=== PATIENT | female | born 1945 | race Caucasian/White ===

== ENCOUNTER → 2017-01-22 | Outpatient (CLI) | payer OTHER | LOC: FIMAGING 13:34 | PROVIDERS: ATTEND Internal Medicine | DX: Z13.820 Encounter for screening for osteoporosis (principal); M81.0 Age-related osteoporosis without current pathological fracture; E66.3 Overweight; I10 Essential (primary) hypertension; R73.9 Hyperglycemia, unspecified ==

== ENCOUNTER → 2017-03-05 | Outpatient (CLI) | payer OTHER ==
[~2017-03-05] MED LIST: IOPAMIDOL (ISOVUE 370) 100 ML BTL IV ONE
== END ==
LOC: FIMAGING 15:47
PROVIDERS: ATTEND Internal Medicine
DX: I70.1 Atherosclerosis of renal artery (principal); I10 Essential (primary) hypertension; K76.0 Fatty (change of) liver, not elsewhere classified
CPT/HCPCS: 74175; Q9967

== ENCOUNTER → 2017-04-09 | Outpatient (CLI) | payer OTHER | LOC: BMCIMAGING 08:15 | PROVIDERS: ATTEND Internal Medicine | DX: Z12.31 Encounter for screening mammogram for malignant neoplasm of breast (principal) | CPT/HCPCS: G0202 ==

== ENCOUNTER → 2017-04-14 | Outpatient (CLI) | payer OTHER | LOC: BMCIMAGING 10:12 | PROVIDERS: ATTEND Internal Medicine | DX: R92.8 Other abnormal and inconclusive findings on diagnostic imaging of breast (principal) | CPT/HCPCS: G0204 ==

== ENCOUNTER 2017-05-02 07:17 | Observation (INO) | payer OTHER ==
[2017-05-02] MEDS ORDERED: FLUMAZENIL 0.5 MG/5 ML MDV IVP ONE (07:29)
[2017-05-02] MEDS ORDERED: fentaNYL 100 MCG/2 ML INJ ONE (07:29)
[2017-05-02] MEDS ORDERED: NALOXONE HCL 0.4 MG/ML INJ ONE (07:29)
[2017-05-02] MEDS ORDERED: MIDAZOLAM 2 MG/2 ML VIAL ONE (07:29)
[2017-05-02] MEDS ORDERED: NS 1,000 ML IV SCH (07:30)
[2017-05-02] MEDS ORDERED: ONDANSETRON 4 MG/2 ML VIAL ONE (08:22)
[2017-05-02] MEDS ORDERED: ATROPINE SULFATE 1 MG/ML VIAL ONE (09:08)
[2017-05-02] MEDS ORDERED: HEPARIN 10,000 UNIT/10 ML MDV ONE (10:16)
[2017-05-02] MEDS ORDERED: LIDOCAINE 1% 300 MG/30 ML SDV ONE (10:21)
[2017-05-02] MEDS ORDERED: IOPAMIDOL (ISOVUE-300) 100 ML BTL ONE ×3 (10:21→10:37)
[2017-05-02] MEDS ORDERED: NITROGLYCERIN/D5W 50 MG/250 ML BOTTLE IV ONE (11:26)
[2017-05-02] MEDS ORDERED: ASPIRIN 325 MG TAB PO SCH (14:30)
[2017-05-02] MEDS ORDERED: ZOLPIDEM TARTRATE 5 MG TAB PO PRN (16:07)
[2017-05-02] MEDS ORDERED: ONDANSETRON 4 MG/2 ML VIAL IVP PRN (16:07)
--- NOTE | 2017-05-02 16:12 | PDHOSCONS ---
Hospitalist Consult Hospitalist Consult: CC: Small vessel dissection during renal artery stenting HISTORY: I am asked by Dr. Jiménez to see this patient who came in for elective left renal artery stenting with a history of uncontrolled hypertension and left renal artery stenosis. The patient was feeling well prior to the procedure other than some fatigue. During the procedure there was a small branch vessel partial dissection with no obvious significant bleeding. 2 stents were deployed during the procedure and they successfully deployed with overall a good angiographic result in terms of flow. There were no complications at the access site and no other complications. The patient was still fairly hypertensive after the procedure. Dr. Jiménez asks for us to observe the patient overnight regarding potential for bleeding or ischemia to the kidney or ongoing uncontrolled hypertension. The patient has been treated for many years by Dr. Ziegler for blood pressure, is on 3 medications and has tried other medications in the past and has never had satisfactory blood pressure control. She denies any recent symptoms of heart failure, other heart disease, stroke or visual or neurologic disease, and she has no history of heart neural of vascular, vascular, or renal disease outside of her known renal artery stenosis. ROS: A comprehensive 10 system review revealed no other significant findings PAST MEDICAL HISTORY: brain abscess at age 8 fracture with surgery at age 8 CHAYA on cpap HTN uncontrolled w renal art stenosis on L DM2 lumpectomy FAMILY MEDICAL HISTORY: DM CVA in brother SOCIAL HISTORY: just traveled to [place] for a wedding no tobacco and no problem drinking MEDICATIONS: The patients list has been reconciled by our clinical pharmacist in the EMR. I have reviewed the list and ordered appropriate medicines. 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, no focal weakness IV site: looks normal LABORATORY DATA: none so far, have ordered cbc and chem I have reviewed angio images which do show good angiographic result in terms of flow ASSESSMENT: -Small renal artery branch partial dissection during angioplasty/stent today -appears stable now; will observe overnight for stability in terms of any bleeding or signs of ischemia or renal failure -will get baseline labs now for comparison tomorrow -Uncontrolled HTN and L EDA, now w 2 stents to L RA, BP better at moment If all stable in AM could be discharged to home I have reviewed the patient's case in detail with Dr. Jiménez I have reviewed the patient's past medical records as part of this assessment, including clinic records
[2017-05-02 19:34] LABS: % IMMATURE GRANULYOCYTES 0.4 % (0.0-1.1); ABSOLUTE IMMATURE GRANULOCYTES 0.04 10^3/uL (0.00-0.10); ADD DIFF? NO; ADD MORPH? NO; ADD SCAN? NO; ATYPICAL LYMPHOCYTE FLAG 10 (0-99); FRAGMENT RBC FLAG 0 (0-99); HEMATOCRIT 34.6 % (38.0-47.0); HEMOGLOBIN 12.7 g/dL (12.6-16.3); LEFT SHIFT FLG 0 (0-99); LIPEMIA HEMOLYSIS FLAG 90 (0-99); MEAN CELL HEMOGLOBIN 31.9 pg (27.9-34.1); MEAN CELL HEMOGLOBIN CONCENTR. 36.7 g/dL (32.4-36.7); MEAN CELL VOLUME 86.9 fL (81.5-99.8); MEAN PLATELET VOLUME 9.4 fL (8.7-11.7); PLATELET CLUMPS FLAG 0 (0-99); PLATELET COUNT 223 10^3/uL (150-400); RED BLOOD CELL COUNT 3.98 10^6/uL (4.18-5.33); RED CELL DISTRIBUTION WIDTH 13.1 % (11.5-15.2)
[2017-05-02 20:01] LABS: ANION GAP 11 mEq/L (8-16); CALCIUM 8.5 mg/dL (8.5-10.4); CARBON DIOXIDE 22 mEq/l (22-31); CHLORIDE 101 mEq/L (97-110); CREATININE 0.7 mg/dL (0.6-1.0); GLOMERULAR FILTRATION RATE > 60; GLUCOSE 163 mg/dL (70-100); POTASSIUM 3.5 mEq/L (3.5-5.2); SODIUM 134 mEq/L (134-144)
[2017-05-02] MEDS ORDERED: CLOPIDOGREL BISULFATE 75 MG TAB PO ONE (20:12)
[2017-05-02] MEDS: LOSARTAN/HCTZ 50/12.5 1 TAB PO SCH (20:32)
[2017-05-03] MEDS: ACETAMINOPHEN 325 MG TAB PO PRN ×2 (02:51→10:17)
[2017-05-03 04:28] LABS: % IMMATURE GRANULYOCYTES 0.2 % (0.0-1.1); ABSOLUTE IMMATURE GRANULOCYTES 0.02 10^3/uL (0.00-0.10); ADD DIFF? NO; ADD MORPH? NO; ADD SCAN? NO; ATYPICAL LYMPHOCYTE FLAG 0 (0-99); FRAGMENT RBC FLAG 0 (0-99); HEMATOCRIT 37.9 % (38.0-47.0); HEMOGLOBIN 13.5 g/dL (12.6-16.3); LEFT SHIFT FLG 0 (0-99); LIPEMIA HEMOLYSIS FLAG 90 (0-99); MEAN CELL HEMOGLOBIN 31.1 pg (27.9-34.1); MEAN CELL HEMOGLOBIN CONCENTR. 35.6 g/dL (32.4-36.7); MEAN CELL VOLUME 87.3 fL (81.5-99.8); MEAN PLATELET VOLUME 9.7 fL (8.7-11.7); PLATELET CLUMPS FLAG 0 (0-99); PLATELET COUNT 233 10^3/uL (150-400); RED BLOOD CELL COUNT 4.34 10^6/uL (4.18-5.33); RED CELL DISTRIBUTION WIDTH 13.2 % (11.5-15.2)
[2017-05-03 04:48] LABS: ANION GAP 12 mEq/L (8-16); CARBON DIOXIDE 23 mEq/l (22-31); CHLORIDE 101 mEq/L (97-110); CREATININE 0.7 mg/dL (0.6-1.0); GLOMERULAR FILTRATION RATE > 60; GLUCOSE 167 mg/dL (70-100); SODIUM 136 mEq/L (134-144)
[2017-05-03] MEDS: MONTELUKAST SODIUM 10 MG TAB PO SCH (08:33)
[2017-05-03] MEDS: METOPROLOL SUCCINATE XR 100 MG TAB PO SCH (08:33)
[2017-05-03] MEDS: DILTIAZEM XR 240 MG CAP PO SCH (08:34)
[2017-05-03] MEDS: ASPIRIN 325 MG TAB PO SCH (08:34)
[2017-05-03] MEDS: CLOPIDOGREL BISULFATE 75 MG TAB PO SCH (08:34)
[2017-05-03] MEDS: LOSARTAN/HCTZ 50/12.5 1 TAB PO SCH ×2 (08:34→20:31)
[2017-05-03] MEDS ORDERED: PROMETHAZINE HCL 25 MG/ML INJ IVP PRN (12:25)
[2017-05-03] MEDS ORDERED: hydrALAZINE 20 MG/ML VIAL IVP PRN (12:25)
--- NOTE | 2017-05-03 13:06 | SOAPPROG ---
SOAP Progress Note Assessment/Plan: Assessment: 71 yo F with HTN uncontrolled on 3 medications and hemodynamically significant left renal artery stenosis s/p left renal artery stent placement POD#1. Since 1000 hrs, BPs have been higher and she feels generally unwell c/o fatigue, chills, THURMAN and muscle aches. Feels a little better after having a large loose bowel movement just before 1300 hrs. Afebrile with benign physical exam and labwork. Symptoms 2/2 elevated pressures? Possible viral prodrome? Plan: 1. Spoke with hospitalist Dr. Pepper. She intends to keep the pt overnight for continued monitoring. Agree with that plan. 2. ASA 81 mg and Plavix 75 mg at discharge and for 6 months, then ASA 81 mg for life. 05/03/17 12:59 05/03/17 13:17 05/03/17 13:52 Subjective: Pt experienced 5/10 back pain towards the end of and following yesterdays procedure. This had resolved by last night. Endorses THURMAN overnight which responded to Tylenol. Since 1000 hrs this morning, she has felt generally unwell c/o fatigue, chills, THURMAN and muscle aches. Feels a little better after having a large loose BM a dew moments ago. Good UOP overnight but not as much this am, but hasn't drank as much either. Denies N/V, fever, hematuria, abd or back pain. Objective: Vital Signs Temp Pulse Resp BP Pulse Ox 36.8 C 59 L 19 191/94 H 93 05/03/17 11:38 05/03/17 11:38 05/03/17 11:38 05/03/17 11:38 05/03/17 11:38 Laboratory Results 05/03/17 03:44 05/03/17 03:44 05/02/17 05/03/17 05/04/17 05:59 05:59 05:59 Intake Total 2790 Balance 2790 Gen: NAD Neck: Supple, no LAD CV: RRR Resp: Normal effort Abd: NTND, no CVA tenderness MSK: No CCE Groin: Rt groin dressing intact, nontender, no hematoma Pulses: DP 2+ bilat ICD10 Worksheet Patient Problems: Problems Problem Status Onset Hypertension Acute Renal artery stenosis Acute - ICD10 Problem Qualifiers (1) Hypertension (2) Renal artery stenosis
[2017-05-03] MEDS ORDERED: LORazepam 2 MG/ML INJ IVP PRN (16:20)
--- NOTE | 2017-05-03 20:47 | HOSPPROG ---
Hospitalist Progress Note Assessment/Plan: 71 yo F with hx of EDA and uncontrolled HTN presenting s/p L renal artery stenting # EDA: s/p stenting of left renal artery, coplciated by small renal artery branch dissection versus embolic phenomenon leading to small kidney infarction/ perfusion defect. Renal artery now widely patent. # uncontrolled HTN: with tx as above expected to improve this significantly, BP post procedure initially still quite elevated but trending down, prn hydralazine #n/v/malaise: patient overall feeling poorly since the procedure with prolonged n/v but afebrile and no elevated wbc. Prn antiemetics and will continue to monitor overnight to determine if any changes occur. # dispo: will continue to observe overnight,if feels better in am can dc home in the morning likely so long as ok with IR Care plan reviewed with Dr. Valdes including plans to monitor overnight Subjective: no significant overnight events, patient continues to have nausea dn feeling achy and fatigued, no fever or chills Objective: Vital Signs Temp Pulse Resp BP Pulse Ox 36.8 C 66 18 131/75 H 94 05/03/17 19:46 05/03/17 19:46 05/03/17 19:46 05/03/17 19:46 05/03/17 19:46 Laboratory Results 05/03/17 03:44 05/03/17 03:44 05/02/17 05/03/17 05/04/17 05:59 05:59 05:59 Intake Total 2790 1740 Balance 2790 1740 awake alert nad anicteric op clear rr no mrg cta soft nt nd no cce warm dry well perfused oriented approraite ICD10 Worksheet Patient Problems: Problems Problem Status Onset Hypertension Acute Renal artery stenosis Acute
[2017-05-04 03:45] LABS: % IMMATURE GRANULYOCYTES 0.4 % (0.0-1.1); ABSOLUTE IMMATURE GRANULOCYTES 0.03 10^3/uL (0.00-0.10); ADD DIFF? NO; ADD MORPH? NO; ADD SCAN? NO; ATYPICAL LYMPHOCYTE FLAG 0 (0-99); FRAGMENT RBC FLAG 0 (0-99); HEMATOCRIT 38.5 % (38.0-47.0); LEFT SHIFT FLG 0 (0-99); LIPEMIA HEMOLYSIS FLAG 90 (0-99); MEAN CELL HEMOGLOBIN 31.3 pg (27.9-34.1); MEAN CELL HEMOGLOBIN CONCENTR. 36.4 g/dL (32.4-36.7); MEAN CELL VOLUME 85.9 fL (81.5-99.8); MEAN PLATELET VOLUME 9.3 fL (8.7-11.7); PLATELET CLUMPS FLAG 0 (0-99); PLATELET COUNT 236 10^3/uL (150-400); RED BLOOD CELL COUNT 4.48 10^6/uL (4.18-5.33); RED CELL DISTRIBUTION WIDTH 13.1 % (11.5-15.2)
[2017-05-04 04:01] VITALS: RESP 18
[2017-05-04 04:32] LABS: ANION GAP 12 mEq/L (8-16); CALCIUM 9.3 mg/dL (8.5-10.4); CARBON DIOXIDE 24 mEq/l (22-31); CHLORIDE 98 mEq/L (97-110); CREATININE 0.8 mg/dL (0.6-1.0); GLOMERULAR FILTRATION RATE > 60; GLUCOSE 218 mg/dL (70-100); POTASSIUM 3.7 mEq/L (3.5-5.2); SODIUM 134 mEq/L (134-144)
[2017-05-04] MEDS: ASPIRIN 325 MG TAB PO SCH (08:16)
[2017-05-04] MEDS: DILTIAZEM XR 240 MG CAP PO SCH (08:16)
[2017-05-04] MEDS: CLOPIDOGREL BISULFATE 75 MG TAB PO SCH (08:16)
[2017-05-04] MEDS: METOPROLOL SUCCINATE XR 100 MG TAB PO SCH (08:18)
[2017-05-04 08:19] VITALS: BP 122/66
[2017-05-04] MEDS: LOSARTAN/HCTZ 50/12.5 1 TAB PO SCH (08:19)
[2017-05-04] MEDS: MONTELUKAST SODIUM 10 MG TAB PO SCH (08:19)
[2017-05-04 08:23] VITALS: PULSE 69; TEMP 96.7; O2SAT 95
--- NOTE | 2017-05-04 08:32 | HOSPPROG ---
Hospitalist Progress Note Assessment/Plan: #EDA: s/p stenting. Cont ASA, Plavix x 6 months and then ASA thereafter #N/V: resolved #HTN: good control in last 24 hrs. Cont home meds #DC today Subjective: no N/V. Minimal THURMAN today. Wants to go home Objective: Vital Signs Temp Pulse Resp BP Pulse Ox 35.9 C L 69 18 122/66 H 95 05/04/17 08:22 05/04/17 08:22 05/04/17 04:00 05/04/17 08:22 05/04/17 08:22 Laboratory Results 05/04/17 03:37 05/04/17 03:37 05/03/17 05/04/17 05/05/17 05:59 05:59 05:59 Intake Total 2790 2240 Balance 2790 2240 - Physical Exam Constitutional: no apparent distress Eyes: PERRL Ears, Nose, Mouth, Throat: moist mucous membranes Cardiovascular: regular rate and rhythym, no murmur, rub, or gallop Respiratory: no respiratory distress Gastrointestinal: normoactive bowel sounds Genitourinary: no bladder fullness Skin: warm Musculoskeletal: other (right groin site, dressed, CDI. Good pulse) Neurologic: AAOx3, CN II-XII Intact Psychiatric: interacting appropriately ICD10 Worksheet Patient Problems: Problems Problem Status Onset Hypertension Acute Renal artery stenosis Acute
--- NOTE | 2017-05-04 09:55 | SOAPPROG ---
SOAP Progress Note Assessment/Plan: Assessment: 71 yo F with HTN uncontrolled on 3 medications and hemodynamically significant left renal artery stenosis s/p left renal artery stent placement POD#2. Chills, nausea and achy feeling now resolved. BP well-controlled. Pt feels ready to go home. Plan: 1. Ok to dc from IR standpoint. 2. Recommend ASA 81 mg and Plavix 75 mg x6 months, then ASA 81 mg for life. 05/03/17 12:59 05/03/17 13:17 05/03/17 13:52 05/04/17 09:50 05/04/17 09:56 Subjective: Doing very well this am. Chills, nausea and achy feeling resolved. Says it felt like a hangover, likely from the sedation meds. Objective: Vital Signs Temp Pulse Resp BP Pulse Ox 35.9 C L 69 18 122/66 H 95 05/04/17 08:22 05/04/17 08:22 05/04/17 04:00 05/04/17 08:22 05/04/17 08:22 Laboratory Results 05/04/17 03:37 05/04/17 03:37 05/03/17 05/04/17 05/05/17 05:59 05:59 05:59 Intake Total 2790 2240 Balance 2790 2240 Gen: NAD Heart: RRR Lungs: Normal effort Abd: NTND soft Groin: Soft, mildly TTP, no palpable hematoma Pulses: 2+ DP bilaterally ICD10 Worksheet Patient Problems: Problems Problem Status Onset Hypertension Acute Renal artery stenosis Acute - ICD10 Problem Qualifiers (1) Hypertension (2) Renal artery stenosis
--- NOTE | 2017-05-04 12:33 | ASDISCHSUM ---
Discharge Information Plan Status:Home with No Needs Medically Cleared to Leave:05/04/2017 Discharge Date:05/04/2017 10:29 AM CM D/C Disposition: ADT D/C Disposition:Home, Routine, Self-Care Projected Discharge Date:05/04/2017 12:00 AM Transportation at D/C: Discharge Delay Reason: Follow-Up Date:05/04/2017 12:00 AM Discharge Slot: Final Diagnosis: Placement Information Patient Contact Information Contact Name:SELMA Relationship:Sister Address: Work Phone: City: [facility] Phone: State/Zip Code: Email: Financial Information Financial Class: Primary Plan Desc:MEDICARE OUTPATIENT Primary Plan Number:[id number] Secondary Plan Desc:[facility] Secondary Plan Number:[id number] Assessment Information Intervention Information
--- NOTE | 2017-05-04 13:29 | GDS ---
[f rep st] DISCHARGE SUMMARY DISCHARGE DIAGNOSES: 1. Renal artery stenosis. 2. Uncontrolled hypertension. 3. Nausea, vomiting. HISTORY OF PRESENT ILLNESS: A 71-year-old female with resistant hypertension to 3 drug therapy, who presented to IR on 05/02/2017 for elective left renal artery stenting for artery stenosis. She was feeling well prior to the procedure, other than some fatigue. During the procedure, there was a small branch vessel with partial dissection with no obvious significant bleeding. Two stents were deployed. HOSPITAL COURSE BY PROBLEM: Renal artery stenosis: Patient underwent elective stenting with a small renal artery branch partial dissection during angioplasty. She has remained hemodynamically stable. H and H are stable. She will be started on aspirin and Plavix for 6 months and then an aspirin thereafter. Uncontrolled hypertension in the setting of left renal artery stenosis: Blood pressure has been stable over the past 24 hours. We will resume her home medications. Follow up with Dr. Ziegler. DISPOSITION: Stable. FOLLOW UP: 1. Dr. Ziegler. 2. Dr. Jiménez with interventional radiology. NEW MEDICATIONS: 1. Aspirin 81 mg daily. 2. Plavix 75 mg daily. /[id number]/MODL MTDD
== END 2017-05-04 10:29 | disposition home or self-care (01) ==
LOC: FIMAGING 07:17 → F2W 12:28 → UNDOADMOB 12:38
PROVIDERS: ADMIT Internal Medicine; ATTEND Internal Medicine
PROC: 047A3DZ Dilation of Left Renal Artery with Intraluminal Device, Percutaneous Approach (ICD-10-PCS; principal; 2017-05-02)
PROC: 04H Lower Arteries, Insertion (ICD-10-PCS; principal; 2017-05-02)
DX: I70.1 Atherosclerosis of renal artery (principal); I15.0 Renovascular hypertension; T81.71 Complication of artery following a procedure, not elsewhere classified; R11.0 Nausea; G47.33 Obstructive sleep apnea (adult) (pediatric); E11.9 Type 2 diabetes mellitus without complications; Z79.82 Long term (current) use of aspirin
CPT/HCPCS: 36251; 37236; 99152; 99153; C1725; C1769; C1876; C1892; G0378; J0360; J1644; J2060; J2250; J2405; J3010; Q9967; J0461; J2310

== ENCOUNTER → 2017-11-05 | Outpatient (CLI) | payer OTHER | LOC: BHFA 11:00 | PROVIDERS: ATTEND Internal Medicine Cardiovascular Disease | DX: R07.9 Chest pain, unspecified (principal) ==

== ENCOUNTER → 2017-11-18 | Outpatient (CLI) | payer OTHER | LOC: BHFA 13:30 | PROVIDERS: ATTEND Internal Medicine Cardiovascular Disease | DX: R94.30 Abnormal result of cardiovascular function study, unspecified (principal) | CPT/HCPCS: 78452; 93017; A9500; J2785 ==

== ENCOUNTER 2017-11-28 06:28 | Day surgery (SDC) | payer OTHER ==
[2017-11-28] MEDS ORDERED: ASPIRIN EC 325 MG TAB PO ONE (06:31)
[2017-11-28] MEDS ORDERED: DIAZEPAM 5 MG TAB PO ONE (06:31)
[2017-11-28] MEDS ORDERED: NITROGLYCERIN 0.4 MG BTL SL PRN (06:31)
[2017-11-28] MEDS ORDERED: FAMOTIDINE 20 MG TAB PO ONE (06:31)
[2017-11-28] MEDS ORDERED: NS 1,000 ML IV SCH (06:31)
[2017-11-28] MEDS ORDERED: diphenhydrAMINE 25 MG CAP PO ONE ×2 (06:31→07:14)
[2017-11-28] MEDS ORDERED: ACETAMINOPHEN 325 MG TAB PO PRN (06:31)
[2017-11-28] MEDS ORDERED: TEMAZEPAM 15 MG CAP PO PRN (06:31)
--- NOTE | 2017-11-28 07:05 | CPEKG ---
Heart Rate: 59 RR Interval: 1017 P-R Interval: 176 QRSD Interval: 96 QT Interval: 476 QTC Interval: 472 P [place]: 45 QRS [place]: -24 T Wave [place]: 83 EKG Severity - BORDERLINE ECG - EKG Impression: SINUS RHYTHM EKG Impression: BORDERLINE T WAVE ABNORMALITIES Electronically Signed By: Low Khan 28-Nov-2017 13:03:32
[2017-11-28] MEDS ORDERED: FAMOTIDINE 20 MG TAB ONE (07:14)
[2017-11-28] MEDS ORDERED: DIAZEPAM 5 MG TAB ONE (07:14)
[2017-11-28 07:28] LABS: INR 0.93 (0.83-1.16); PROTIME(PATIENT) 12.7 SEC (12.0-15.0)
[2017-11-28] MEDS ORDERED: fentaNYL 100 MCG/2 ML INJ ONE (08:03)
[2017-11-28] MEDS ORDERED: LIDOCAINE 1% 300 MG/30 ML SDV ONE (08:03)
[2017-11-28] MEDS ORDERED: IOPAMIDOL (ISOVUE-370) 150 ML BTL IV ONE (08:04)
[2017-11-28] MEDS ORDERED: VERAPAMIL 5 MG/2 ML VIAL ONE (08:04)
[2017-11-28] MEDS ORDERED: HEPARIN 10,000 UNIT/10 ML MDV (1,000 UNIT/ML) ONE (08:04)
[2017-11-28] MEDS ORDERED: MIDAZOLAM 2 MG/2 ML VIAL ONE (08:04)
--- NOTE | 2017-11-28 08:30 | PDPROPOC ---
Sedation Plan of Care Sedation Plan of Care: vital signs stable, mental status noted, patient educated of risks, benefits, alternatives, patient can tolerate sedation ASA Classification: ASA 2 Planned drugs: fentanyl, midazolam Mallampati Score: Class 2 Mallampati Reference Image: Patient passed 3-3-2 rule?: Yes
--- NOTE | 2017-11-28 08:30 | PDHPUP ---
History & Physical Update H&P update statement: This history and physical update is based on an assessment of the patient which was completed after admission or registration (within 24 hours), but prior to the surgery/procedure. H&P update: H&P reviewed & patient examined, no change in patient's condition since H&P completed (Normal Carmine test right wrist.)
[2017-11-28] MEDS ORDERED: ATROPINE SULFATE 1 MG/10 ML SYR IVP PRN (09:18)
[2017-11-28] MEDS ORDERED: ONDANSETRON 4 MG/2 ML VIAL IVP PRN (09:18)
--- NOTE | 2017-11-28 09:53 | PDDXCAT ---
Diagnostic Cath Note - . Date: 11/28/17 Pigment Processor: Odilon Indication: other (CCS class III angina on medical therapy, risk factors for CAD , and abnormal nuclear stress test.) - Procedure Access: right wrist Procedure: left heart catheterization, coronary angiography, left ventriculogram - Materials Left Heart Cath size: 5F Left Heart Cath materials: other (TIG and Pigtail) - Findings-Left Heart Catheterization LM: Flouroscopy reveals calcification of the left main. Angiography demonstrates the left main is widely patent without significant stenosis. LAD: Fluoroscopy reveals calcification in the proximal LAD. Angiography demonstrates a high grade stenosis of at least 80% in the mid-LAD immediately adjacent to the origin of a sizable diagonal branch. This lesion is followed closely by a 70% mid-LAD stenosis. LCX: Minimal irreuglarities. RCA: Mid-RCA 50%. Diffuse moderate irregularities from the mid to distal RCA. The ostium of the posterior descending branch has a focal 80-90% stenosis. The distal RCA has a focal stenosis of 80% jeopardizing 2 posterolateral branches. EDP: 17 mmHg LVEF: 60% Wall motion: Normal Estimated blood loss: <50ml Closure method: TR Band Assessment: 1) Normal LV systolic function. 2) CAD as described above. Plan: Her diltiazem will be discontinued in favor of metoprolol succinate 50 mg PO daily. She will be started on atorvastatin 40 mg daily. She will also be provided with a prescription for sublingual nitroglycerin. The office staff at [facility] has been instructed to contact the patient to arrange an office appointment with Dr. Len Cohen for consideration of coronary bypass surgery. Patient Problems: Problems Problem Status Onset Coronary artery disease Acute Hypertension Acute Renal artery stenosis Acute
[2017-11-29] MEDS ORDERED: ATORVASTATIN CALCIUM 40 MG TAB PO SCH (09:00)
[2017-11-29] MEDS ORDERED: METOPROLOL SUCCINATE XR 50 MG TAB PO SCH (09:00)
== END 2017-11-28 12:30 | disposition home or self-care (01) ==
LOC: FCATH 06:28
PROVIDERS: ATTEND Internal Medicine Interventional Cardiology
PROC: B2111ZZ Fluoroscopy of Multiple Coronary Arteries using Low Osmolar Contrast (ICD-10-PCS; principal; 2017-11-28)
PROC: B2151ZZ Fluoroscopy of Left Heart using Low Osmolar Contrast (ICD-10-PCS; principal; 2017-11-28)
PROC: 4A023N7 Measurement of Cardiac Sampling and Pressure, Left Heart, Percutaneous Approach (ICD-10-PCS; principal; 2017-11-28)
DX: I25.119 Atherosclerotic heart disease of native coronary artery with unspecified angina pectoris (principal); E78.5 Hyperlipidemia, unspecified; I10 Essential (primary) hypertension; E11.9 Type 2 diabetes mellitus without complications; E66.3 Overweight; G47.33 Obstructive sleep apnea (adult) (pediatric); M81.0 Age-related osteoporosis without current pathological fracture
CPT/HCPCS: 93005; 93458; C1769; J1644; J2250; J3010; Q9967

== ENCOUNTER → 2017-12-03 | Outpatient (CLI) | payer OTHER | LOC: BHFA 10:00 | PROVIDERS: ATTEND Internal Medicine Cardiovascular Disease | DX: I25.10 Atherosclerotic heart disease of native coronary artery without angina pectoris (principal) ==

== ENCOUNTER → 2017-12-08 | Outpatient (CLI) | payer OTHER | LOC: FLAB 08:57 | PROVIDERS: ATTEND Thoracic Surgery (Cardiothoracic Vascular Surgery) | DX: Z13.6 Encounter for screening for cardiovascular disorders (principal) ==

== ENCOUNTER 2017-12-11 05:41 | Inpatient (IN) | payer OTHER ==
[~2017-12-11 05:41] MED LIST changes: -IOPAMIDOL (ISOVUE 370) 100 ML BTL IV ONE; +VANCOMYCIN PHARMACY TO DOSE MISC ONE; +niCARdipine/NACL 200 ML IV SCH
[2017-12-11] MEDS ORDERED: CITRATE DEXTROSE SOLN 500 ML BAG MISC ONE (06:00)
[2017-12-11] MEDS ORDERED: MUPIROCIN 2% 22 GM OINT NS ONE (06:00)
[2017-12-11] MEDS ORDERED: VANCOMYCIN 1 GM in NS 250 ML IV ONE (06:00)
[2017-12-11] MEDS ORDERED: PHENYLEPHRINE HCL 50 MG in NS 250 ML IV ONE (06:00)
[2017-12-11] MEDS ORDERED: AMINOCAPROIC ACID 5 GM/20 ML VIAL IV ONE (06:00)
[2017-12-11] MEDS ORDERED: MANNITOL 25% 12.5 GM/50 ML VIAL IVP ONE (06:00)
[2017-12-11] MEDS ORDERED: VERAPAMIL 5 MG, NITROGLYCERIN 2.5 MG, HEPARIN 500 UNIT, SODIUM BICARBONATE 0.2 MEQ in L... MISC ONE (06:00)
[2017-12-11] MEDS ORDERED: NOREPINEPHRINE BITARTRATE 16 MG in NS 250 ML IV ONE (06:00)
[2017-12-11] MEDS ORDERED: SODIUM BICARBONATE 20 MEQ, LIDOCAINE 1% 10 ML in NORMOSOL-R 1,000 ML MISC ONE (06:00)
[2017-12-11] MEDS ORDERED: INSULIN REGULAR HUMAN 100 UNIT in NS 100 ML IV ONE (06:00)
[2017-12-11] MEDS ORDERED: LR 1,000 ML IV ONE (06:05)
--- NOTE | 2017-12-11 06:28 | PDHPUP ---
History & Physical Update H&P update statement: This history and physical update is based on an assessment of the patient which was completed after admission or registration (within 24 hours), but prior to the surgery/procedure. H&P update: H&P reviewed & patient examined, no change in patient's condition since H&P completed
[2017-12-11] MEDS ORDERED: CALCIUM CHLORIDE 1 GM/10 ML INJ ONE ×2 (06:29→06:31)
[2017-12-11] MEDS ORDERED: PROTAMINE SULFATE 50 MG/5 ML VIAL IVP ONE (06:29)
[2017-12-11] MEDS ORDERED: MILRINONE/DEXTROSE/100 ML BAG IV ONE (06:29)
[2017-12-11] MEDS ORDERED: DOPamine/DEXTROSE/250 ML BAG IV ONE (06:30)
[2017-12-11] MEDS ORDERED: AMIODARONE HCL 150 MG/3 ML VIAL ONE ×2 (06:30→06:31)
[2017-12-11] MEDS ORDERED: niCARdipine/NACL/200 ML BAG IV ONE (06:30)
[2017-12-11] MEDS ORDERED: HEPARIN 10,000 UNIT/10 ML MDV (1,000 UNIT/ML) ONE ×2 (06:30→06:31)
[2017-12-11] MEDS ORDERED: ceFAZolin 1 GM VIAL ONE (06:30)
[2017-12-11] MEDS ORDERED: NA BICARBONATE 50 MEQ/50 ML VIAL ONE (06:30)
[2017-12-11] MEDS ORDERED: ADENOSINE 6 MG/2 ML VIAL ONE (06:30)
[2017-12-11] MEDS ORDERED: CITRATE DEXTROSE SOLN 500 ML BAG ONE (06:31)
[2017-12-11] MEDS ORDERED: ALBUMIN 5% 250 ML BOTTLE IV ONE (06:31)
[2017-12-11] MEDS ORDERED: LIDOCAINE 2% 100 MG/5 ML SYR ONE ×2 (06:31→07:09)
[2017-12-11] MEDS ORDERED: MAGNESIUM SULFATE 1 GM/2 ML VIAL ONE (06:31)
[2017-12-11] MEDS ORDERED: VERAPAMIL 5 MG/2 ML VIAL ONE (06:32)
[2017-12-11] MEDS ORDERED: MINERAL OIL 10 ML VIAL ONE (06:32)
[2017-12-11] MEDS ORDERED: PAPAVERINE HCL 60 MG/2 ML SDV ONE (06:32)
[2017-12-11] MEDS ORDERED: methylPREDNISolone SOD SUCC 1 GM/8 ML VIAL ONE (06:32)
[2017-12-11] MEDS ORDERED: MIDAZOLAM 2 MG/2 ML VIAL IVP ONE (06:50)
--- NOTE | 2017-12-11 06:54 | PDANEPAE ---
ANE History of Present Illness severe 2v CAD s/f CABG ANE Past Medical History - Cardiovascular History Hx Hypertension: Yes Hx Arrhythmias: No Hx Chest Pain: Yes Hx Coronary Artery / Peripheral Vascular Disease: No Hx CHF / Valvular Disease: No Hx Palpitations: No Cardiovascular History Comment: CP REPORTED 10/2017. SOB ON MAHANS NOTE - Pulmonary History Hx COPD: No Hx Asthma/Reactive Airway Disease: No Hx Recent Upper Respiratory Infection: No Hx Oxygen in Use at Home: No Hx Sleep Apnea: No Sleep Apnea Screening Result - Last Documented: Negative Pulmonary History Comment: RECENT SOB W/EXERCISE. NO CURRENT SNORING AFTER LOSS OF WT. - Neurologic History Hx Cerebrovascular Accident: No Hx Seizures: No Hx Dementia: No Neurologic History Comment: ON MONTELUKAST-FOR DUST, POLLEN ALLERGIES. - Endocrine History Hx Diabetes: Yes Endocrine History Comment: NIDDM - Renal History Hx Renal Disorders: Yes Renal History Comment: L RENAL STENT - Liver History Hx Hepatic Disorders: No - Neurological & Psychiatric Hx Hx Neurological and Psychiatric Disorders: No - Cancer History Hx Cancer: Yes Cancer History Comment: Skin - Congenital Disorder History Hx Congenital Disorders: No - GI History Hx Gastrointestinal Disorders: No - Other Health History Other Health History: ITCHY RASH ON R F.A. AND R GROIN - Chronic Pain History Chronic Pain: No - Surgical History Prior Surgeries: HEART CATH November. RENAL STENT PLACED ;. Tubal ligation. Tonsilectomy ANE Review of Systems Review of Systems: - Exercise capacity METS (RN): 3 METS ANE Patient History - Allergies Allergies/Adverse Reactions: cephalexin Allergy (Intermediate, Verified 12/09/17 10:38) Rash codeine Allergy (Intermediate, Verified 12/09/17 10:38) Other-Enter Comments chloroprep Allergy (Uncoded 12/02/17 15:54) Rash - Home Medications Home medications: home medication list seen and reviewed Home Medications: Montelukast Sodium 10 mg PO DAILY 02/19/15 [Last Taken 12/10/17] Aspirin EC [Aspirin EC 325 mg (*)] 325 mg PO DAILY 11/28/17 [Last Taken 12/10/17 ] Losartan/Hctz 50/12.5 [Hyzaar 50/12.5MG (*)] 1 tab PO BID 11/28/17 [Last Taken 11/27/17 09:00] Atorvastatin Calcium [Lipitor 40 mg (*)] 40 mg PO HS 12/04/17 [Last Taken ] Desoximetasone 0.05% [Topicort 0.05% Gel (*)] 1 shawn TP BID 12/04/17 [Last Taken 12/10/17] Glimepiride [Amaryl 2 MG (*)] 4 mg PO DAILY 12/04/17 [Last Taken 12/10/17] diphenhydrAMINE [Benadryl 25 MG (*)] 50 mg PO Q6HRS PRN 12/04/17 [Last Taken ] - NPO status NPO Since - Liquids (Date): 12/10/17 NPO Since - Liquids (Time): 19:00 NPO Since - Solids (Date): 12/10/17 NPO Since - Solids (Time): 19:00 - Anes Hx Anes Hx: no prior problems - Smoking Hx Smoking Status: Former smoker - Alcohol Use Alcohol Use: Rarely - Family Anes Hx Family Anes Hx: none Family Hx Anesthesia Complications: None known ANE Labs/Vital Signs - Labs - CBC WBC: as directed - Vital Signs Blood Pressure: 168/74 Heart Rate: 58 Respiratory Rate: 14 O2 Sat (%): 98 Height: 157.48 cm Weight: 58.967 kg ANE Physical Exam - Airway Neck exam: FROM Mallampati Score: Class 2 Mouth exam: normal dental/mouth exam - Pulmonary Pulmonary: no respiratory distress - Cardiovascular Cardiovascular: regular rate and rhythym - ASA Status ASA Status: III ANE Anesthesia Plan Anesthesia Plan: general endotracheal anesthesia Lines/Monitors: arterial line, central line, DAVID
[2017-12-11] MEDS ORDERED: fentaNYL 250 MCG/5 ML INJ ONE (07:08)
[2017-12-11] MEDS ORDERED: REMIFENTANIL HCL 1 MG VIAL ONE (07:08)
[2017-12-11] MEDS ORDERED: MIDAZOLAM 2 MG/2 ML VIAL ONE (07:08)
[2017-12-11] MEDS ORDERED: ONDANSETRON 4 MG/2 ML VIAL ONE (07:08)
[2017-12-11] MEDS ORDERED: ePHEDrine SULFATE 25 MG/5 ML SYR ONE (07:08)
[2017-12-11] MEDS ORDERED: PROPOFOL/EMULSION 500 MG/50 ML BOTTLE IV ONE (07:08)
[2017-12-11] MEDS ORDERED: DEXAMETHASONE 4 MG/ML VIAL ONE ×2 (07:08)
[2017-12-11] MEDS ORDERED: ROCURONIUM 100 MG/10 ML VIAL ONE (07:09)
[2017-12-11] MEDS ORDERED: PHENYLEPHRINE HCL 100 MCG/ML SYR ONE (07:09)
[2017-12-11] MEDS ORDERED: LIDOCAINE HCL 160 MG/4 ML LTA KIT TP ONE (07:12)
[2017-12-11] MEDS ORDERED: ESMOLOL HCL 100 MG/10 ML VIAL IV ONE (08:00)
[2017-12-11] MEDS ORDERED: DEXMEDETOMIDINE HCL 400 MCG in NS 100 ML IV SCH (08:30)
[2017-12-11] MEDS ORDERED: SUGAMMADEX SODIUM 200 MG/2 ML VIAL IVP ONE (11:15)
[2017-12-11] MEDS ORDERED: fentaNYL 100 MCG/2 ML INJ ONE (11:17)
[2017-12-11] MEDS ORDERED: MAGNESIUM SULF 2 GM/WATER 50 ML BAG IV ONE (11:21)
[2017-12-11] MEDS ORDERED: MAGNESIUM HYDROXIDE 30 ML UDCUP PO PRN (11:37)
[2017-12-11] MEDS ORDERED: MAGNESIUM SULF 2 GM/WATER 50 ML IV ONE (11:37)
[2017-12-11] MEDS ORDERED: LACTULOSE 20 GM/30 ML UDCUP PO PRN (11:37)
[2017-12-11] MEDS ORDERED: PANTOPRAZOLE SODIUM 40 MG VIAL IVP ONE (11:37)
[2017-12-11] MEDS ORDERED: ACETAMINOPHEN 650 MG SUPP PR PRN (11:37)
[2017-12-11] MEDS ORDERED: SODIUM CL NASAL 45 ML BTL EACHNARE PRN (11:37)
[2017-12-11] MEDS ORDERED: MEPERIDINE 25 MG/0.5 ML AMP IVP PRN (11:37)
[2017-12-11] MEDS ORDERED: BISACODYL 10 MG SUPP PR PRN (11:37)
[2017-12-11] MEDS ORDERED: POLYETHYLENE GLYCOL 3350 17 GM PKT PO PRN (11:37)
[2017-12-11] MEDS ORDERED: ONDANSETRON DISINTEGRATING 4 MG TAB PO PRN (11:37)
[2017-12-11] MEDS ORDERED: D50W 25 GM/50 ML SYR IVP PRN (11:37)
[2017-12-11] MEDS ORDERED: ACETAMINOPHEN 325 MG TAB PO PRN (11:37)
[2017-12-11] MEDS ORDERED: ALBUMIN 5% 250 ML IV PRN (11:37)
[2017-12-11] MEDS ORDERED: CEPACOL LOZENGE PO PRN (11:37)
--- NOTE | 2017-12-11 11:44 | GOP ---
[f rep st] OPERATIVE REPORT DATE OF OPERATION: 12/11/2017 SURGEON: Len Cohen DO STONER HAND: Forrest Beth PA-C and LEX Haines ANESTHESIOLOGIST: Venkat Villafana MD PREOPERATIVE DIAGNOSIS: Arteriosclerotic heart disease. POSTOPERATIVE DIAGNOSIS: Arteriosclerotic heart disease. PROCEDURE PERFORMED: 1. Coronary artery bypass grafting x5 with left internal mammary artery to the left anterior descend ing, saphenous vein graft to the 2nd diagonal, saphenous vein graft to the 1st OM, saphenous vein gra ft to the posterior lateral branch, sequential to PDA via the transverse sinus. 2. Ligate left atrial appendage. 3. Endoscopic vein harvest. FINDINGS: Patient was noted to have severe 3-vessel disease not amenable to PCI, was referred for cutler rgical intervention. Consent was obtained. DESCRIPTION OF PROCEDURE: She was brought to the operating room, intubated, and monitoring lines wer e placed. She was prepped and draped in sterile classical manner. Time out was confirmed. A sterno tico was performed. Mammary was harvested. It was a 1.6 to 1.8 mm vessel with brisk flow. The vein was harvested from both thighs and was 3.4 to 3.5 mm in diameter. She was heparinized, cannulated, bypass was begun, and cardioplegic arrest was obtained with antegrade cardioplegia, topical hypotherm ia, and systemic cooling. All distals and proximals performed with a cross-clamp on. The left atria l appendage was doubly ligated with silk tie. The cross-clamp was removed with suction on the ascend ing aortic vent. Spontaneous cardiac activity was noted to resume. It should be noted the vein was harvested endoscopically by Padmini Howe and AVA Lawrence, who first assisted throughout the procedure . The patient was rewarmed, weaned from bypass. Heparin was reversed with protamine. The cannula w as removed and oversewn. Two ventricular pacing wires, 2 pleural, and [address] d. The thymic fat and pericardium were closed. Chest was closed in standard fashion. The patient w as returned to ICU in stable condition. /[id number]/MODL
[2017-12-11] MEDS ORDERED: NS 1,000 ML IV SCH (11:45)
--- NOTE | 2017-12-11 11:53 | ASMTCASEMG ---
Living Arrangements What is your living Answers: With Spouse arrangement? Who do you live with? Type Of Residence What kind of residence do Answers: Apartment you live in? Discharge Plan Comments Coordination Status Comments Notes: Patient is a 72yo female who was admitted for coronary artery bypass grafting x5 with Dr. Cohen. OT/PT/Cardiac rehab evals ordered. D/C plan TBD. CM will follow. Date Signed: 12/11/2017 11:52 AM Electronically Signed By:Celestina Zambrano LCSW
[2017-12-11] MEDS ORDERED: VANCOMYCIN HCL/NORMAL SALINE 250 ML IV SCH (12:00)
[2017-12-11] MEDS ORDERED: INSULIN REGULAR HUMAN 100 UNIT in NS 100 ML IV SCH (12:00)
--- NOTE | 2017-12-11 12:12 | CPEKG ---
Heart Rate: 64 RR Interval: 938 P-R Interval: 192 QRSD Interval: 98 QT Interval: 448 QTC Interval: 463 P [place]: 17 QRS [place]: -11 T Wave [place]: 212 EKG Severity - ABNORMAL ECG - EKG Impression: SINUS RHYTHM EKG Impression: CONSIDER ANTEROSEPTAL INFARCT Electronically Signed By: Ephraim Ortega 11-Dec-2017 15:26:44
[2017-12-11] MEDS: POTASSIUM Cl (KCl) 50 ML IV PRN ×3 (14:21→18:10)
[2017-12-11] MEDS: fentaNYL 100 MCG/2 ML INJ IVP PRN ×6 (14:43→22:33)
--- NOTE | 2017-12-11 14:48 | PDMN ---
Medical Necessity Medical necessity: [facility] IP only surgery; cpt 86881 CABGx5
[2017-12-11] MEDS: ONDANSETRON 4 MG/2 ML VIAL IVP PRN ×2 (16:57→19:03)
[2017-12-11] MEDS: METOCLOPRAMIDE 10 MG/2 ML VIAL IVP PRN (19:03)
[2017-12-11] MEDS: VANCOMYCIN HCL/NORMAL SALINE 250 ML IV SCH (20:14)
--- NOTE | 2017-12-11 20:22 | POSTANESTH ---
Post Anesthetic Evaluation Cardiovascular Status: Tx Hyper/Hypo-tension (mild htn being Tx) Respiratory Status: Tx Decrease in SpO2 (2L by NC) Level of Consciousness/Mental Status: Can Participate in Eval, Mildly Sleepy, Arousable Pain Control: Adequate, Prn Tx Ordered Nausea/Vomiting Control: Adequate, Prn Tx Ordered (emesis earlier) Complications Possibly Related to Anesthesia: None Noted (visited in the ICU about 1700 today)
[2017-12-11] MEDS: SENNOSIDES/DOCUSATE SODIUM TAB PO SCH (21:35)
[2017-12-11] MEDS: MUPIROCIN 2% 22 GM OINT NS SCH (23:04)
[2017-12-12] MEDS: HYDROCODONE/APAP 5/325 TAB PO PRN ×4 (04:07→19:51)
[2017-12-12 04:25] LABS: PLATELET COUNT 114 10^3/uL (150-400)
[2017-12-12] MEDS: fentaNYL 100 MCG/2 ML INJ IVP PRN ×2 (04:38→06:14)
[2017-12-12] MEDS: METOCLOPRAMIDE 10 MG/2 ML VIAL IVP PRN (05:10)
[2017-12-12] MEDS: ONDANSETRON 4 MG/2 ML VIAL IVP PRN ×2 (05:10→19:46)
--- NOTE | 2017-12-12 06:41 | SOAPPROG ---
SOAP Progress Note Assessment/Plan: Assessment: POD#1 CABG x 5 ([place]-LAD, SV-D2, SV-OM1, SV seq PLR-PDA), EVH bilat LEs, prophylactic suture ligation left atrial appendage Sx CAD with preserved LV systolic fx - s/p CABG. Extubated in the OR. Hemodynamically stable without vasoactive support, dysrhythmias, or backup pacing. No significant volume overload. Secondary prevention with ASA, BB as tolerated, and statin when eating well. Acute expected blood loss anemia - Stable. No transfusions required. DM2, controlled - Preop A1c of 5.6%. Postop hyperglycemia managed with insulin gtt. Prompt transition to SSI and OHA expected. Plan: Routine POD#1 orders re. drains, lines, wires, orals and mobility. Tx to PCU. 12/12/17 06:39 Subjective: Feels better than expected. No dizziness OOB. Adequate analgesia. No nausea. Objective: Vital Signs Temp Pulse Resp BP Pulse Ox 37.2 C 64 26 H 131/55 H 97 12/12/17 06:21 12/12/17 06:21 12/12/17 06:21 12/12/17 06:21 12/12/17 06:21 Laboratory Results 12/12/17 04:20 12/12/17 04:20 12/11/17 12/12/17 12/13/17 05:59 05:59 05:59 Intake Total 2120 Output Total 2085 150 Balance 35 -150 SB/SR with SBPs > 100. Min suppl O2 req. Adequate UOP. Dissipating CTOP. CXR -> No PTX, no pulm vasc congestion, no undrained effusions. Labs as expected. Physical Exam - Physical Exam General Appearance: alert, no apparent distress Respiratory: decreased breath sounds (bases), other (blakes x 3 y-d to pleurovac , serosang drainage, no air leak) Cardiac/Chest: regular rate, rhythm, other (Sternotomy CDI. Vwire intact.) Abdomen: non-tender, soft Skin: warm/dry Extremities: swelling (1+ gen) ICD10 Worksheet Patient Problems: Problems Problem Status Onset S/P coronary artery bypass graft x 5 Acute chronic disease mgmt/transitional care Acute Coronary artery disease Acute Hypertension Acute Renal artery stenosis Acute
[2017-12-12] MEDS: HEPARIN 5,000 UNIT/0.5 ML INJ SC SCH ×3 (06:56→22:05)
[2017-12-12] MEDS: VANCOMYCIN HCL/NORMAL SALINE 250 ML IV SCH (07:39)
[2017-12-12] MEDS: INSULIN LISPRO 100 UNIT/ML SC SCH ×3 (08:28→18:40)
[2017-12-12] MEDS: traMADol 50 MG TAB PO PRN ×3 (08:39→22:34)
[2017-12-12] MEDS: SENNOSIDES/DOCUSATE SODIUM TAB PO SCH ×2 (08:40→22:07)
[2017-12-12] MEDS: ASPIRIN EC 325 MG TAB PO SCH (08:40)
[2017-12-12] MEDS: PANTOPRAZOLE SODIUM 40 MG TAB PO SCH (08:40)
[2017-12-12] MEDS: MONTELUKAST SODIUM 10 MG TAB PO SCH (08:40)
[2017-12-12] MEDS: MUPIROCIN 2% 22 GM OINT NS SCH ×2 (08:41→22:05)
[2017-12-12] MEDS: DESOXIMETASONE 0.05% TP SCH ×2 (10:07→22:10)
[2017-12-12] MEDS ORDERED: KETOROLAC 15 MG/1 ML SDV IVP ONE (19:30)
[2017-12-12] MEDS ORDERED: VANCOMYCIN 1 GM in NS 250 ML IV ONE (20:00)
[2017-12-12] MEDS: METOPROLOL TARTRATE 25 MG TAB PO SCH (22:06)
[2017-12-13] MEDS: HYDROCODONE/APAP 5/325 TAB PO PRN ×2 (01:40→10:36)
[2017-12-13] MEDS: HEPARIN 5,000 UNIT/0.5 ML INJ SC SCH ×3 (05:09→22:54)
--- NOTE | 2017-12-13 07:13 | SOAPPROG ---
SOAP Progress Note Assessment/Plan: Assessment: POD#2 CABG x 5 (ENGLAND-LAD, SV-D2, SV-OM1, SV seq PLR-PDA), EVH bilat LEs, prophylactic suture ligation left atrial appendage Sx CAD with preserved LV systolic fx - s/p CABG. Extubated in the OR. Hemodynamically stable without vasoactive support, dysrhythmias, or backup pacing. Adequate autodiuresis of modest volume overload. Secondary prevention with ASA, BB as tolerated, and statin when eating well. Acute expected blood loss anemia - Stable. No transfusions required. DM2, controlled - Preop A1c of 5.6%. Postop hyperglycemia managed with insulin gtt. Prompt transition to SSI. Gradual reintro of OHA as oral intake improves. Plan: Remove Vwires. Remove ant med and rt pleural tubes. Resume Amaryl at 25% home dose. Metoprolol 12.5 mg BID w conservative hold parameters. Inc activity as tolerated. 12/13/17 07:10 Subjective: Improving mobility. Nauseous on narc analgesics. Resultant oral intake poor/ just applesauce and crackers. Rt pleuritic pains. Objective: Vital Signs Temp Pulse Resp BP Pulse Ox 36.7 C 79 14 105/66 98 12/13/17 04:00 12/13/17 04:00 12/13/17 04:00 12/13/17 04:00 12/13/17 04:00 Laboratory Results 12/13/17 05:15 12/12/17 04:20 12/12/17 12/13/17 12/14/17 05:59 05:59 05:59 Intake Total 2120 1640 Output Total 2085 1125 Balance 35 515 Holding SR. No hypotension. Min suppl O2 needs. Adequate UOP. CTOP approaching removal criteria. Labs as expected. FSBGs 140s-180s. Physical Exam - Physical Exam General Appearance: alert, no apparent distress Respiratory: decreased breath sounds (bases), other (blakes x 3 to bulb suction , serosang drainage) Cardiac/Chest: regular rate, rhythm, friction rub, other (Sternotomy CDI, V wires intact) Abdomen: normal bowel sounds, non-tender, soft Skin: warm/dry Extremities: swelling (trace), other (LLE venotomy CDI) ICD10 Worksheet Patient Problems: Problems Problem Status Onset S/P coronary artery bypass graft x 5 Acute chronic disease mgmt/transitional care Acute Coronary artery disease Acute Hypertension Acute Renal artery stenosis Acute
[2017-12-13] MEDS: INSULIN LISPRO 100 UNIT/ML SC SCH ×3 (08:26→19:26)
[2017-12-13] MEDS: traMADol 50 MG TAB PO PRN ×2 (08:30→20:21)
[2017-12-13] MEDS: PANTOPRAZOLE SODIUM 40 MG TAB PO SCH (08:31)
[2017-12-13] MEDS ORDERED: GLIMEPIRIDE 1 MG TAB PO SCH (09:00)
[2017-12-13] MEDS: MONTELUKAST SODIUM 10 MG TAB PO SCH (10:25)
[2017-12-13] MEDS: SENNOSIDES/DOCUSATE SODIUM TAB PO SCH ×2 (10:25→20:01)
[2017-12-13] MEDS: ASPIRIN EC 325 MG TAB PO SCH (10:25)
[2017-12-13] MEDS: METOPROLOL TARTRATE 25 MG TAB PO SCH ×2 (10:25→22:53)
[2017-12-13] MEDS: MUPIROCIN 2% 22 GM OINT NS SCH (10:27)
[2017-12-13] MEDS: DESOXIMETASONE 0.05% TP SCH ×2 (10:34→20:02)
[2017-12-13] MEDS: ONDANSETRON 4 MG/2 ML VIAL IVP PRN (13:28)
[2017-12-13] MEDS: METOCLOPRAMIDE 10 MG/2 ML VIAL IVP PRN (13:59)
[2017-12-13] MEDS ORDERED: SCOPOLAMINE HYDROBROMIDE 1 MG/3 DAYS PATCH TD ONE (14:09)
[2017-12-13] MEDS ORDERED: ALBUMIN 5% 250 ML IV ONE (16:18)
--- NOTE | 2017-12-13 18:35 | ASMTCMCOM ---
CM Note CM Note Notes: Pt is POD#2, s/p CABG. Anticipate pt will dc home w/ and follow up w/outpt cardiac rehab. CM will follow. Date Signed: 12/13/2017 06:35 PM Electronically Signed By:Suri Fishman RN
[2017-12-13] MEDS: HYDROCODONE/APAP 10/325 TAB PO PRN (18:47)
[2017-12-14] MEDS: HYDROCODONE/APAP 10/325 TAB PO PRN ×3 (04:30→20:15)
[2017-12-14] MEDS: HEPARIN 5,000 UNIT/0.5 ML INJ SC SCH ×3 (06:10→22:32)
--- NOTE | 2017-12-14 08:21 | SOAPPROG ---
SOAP Progress Note Assessment/Plan: Assessment: POD#3 CABG x 5 (ENGLAND-LAD, SV-D2, SV-OM1, SV seq PLR-PDA), EVH bilat LEs, prophylactic suture ligation left atrial appendage Sx CAD with preserved LV systolic fx - s/p CABG. Extubated in the OR. Stable early postop course. Wires and 2 of 3 chest tubes out. Adequate autodiuresis of modest volume overload. Secondary prevention with ASA, statin, and BB as tolerated. Acute expected blood loss anemia - Stable. No transfusions required. DM2, controlled - Preop A1c of 5.6%. Postop hyperglycemia managed with insulin gtt. Prompt transition to SSI. Gradual reintro of OHA as oral intake improves. Plan: Remove left pleural tube. Increase Amaryl to 50% home dose. Cont metoprolol 12.5 mg BID w conservative hold parameters. Cont scopolamine patch x 1 more day. Cont inc activity as tolerated. Wean O2. Dispo - Anticipate home without services in 2 days. 12/14/17 08:18 Subjective: Nausea seemingly resolved on scop patch and good pain control achieved with [place]. Feels like a new woman. Hungry. Eager to be more active. Would like to go home rather than SNF Objective: Vital Signs Temp Pulse Resp BP Pulse Ox 36.9 C 68 18 106/60 97 12/14/17 04:00 12/14/17 04:00 12/14/17 04:00 12/14/17 04:00 12/14/17 04:00 Laboratory Results 12/13/17 05:15 12/12/17 04:20 12/13/17 12/14/17 12/15/17 05:59 05:59 05:59 Intake Total 1640 850 Output Total 1125 1015 Balance 515 -165 Physical Exam - Physical Exam General Appearance: alert, no apparent distress Respiratory: lungs clear (grossly), other (trang to bulb suction, thin mostly serous drainage) Cardiac/Chest: regular rate, rhythm, other (Sternotomy and bilat venotomies CDI) Abdomen: non-tender, soft Skin: warm/dry Extremities: swelling (trace) ICD10 Worksheet Patient Problems: Problems Problem Status Onset S/P coronary artery bypass graft x 5 Acute chronic disease mgmt/transitional care Acute Coronary artery disease Acute Hypertension Acute Renal artery stenosis Acute
[2017-12-14] MEDS: ASPIRIN EC 325 MG TAB PO SCH (08:32)
[2017-12-14] MEDS: PANTOPRAZOLE SODIUM 40 MG TAB PO SCH (08:32)
[2017-12-14] MEDS: MONTELUKAST SODIUM 10 MG TAB PO SCH (08:32)
[2017-12-14] MEDS: SENNOSIDES/DOCUSATE SODIUM TAB PO SCH ×2 (08:32→20:15)
[2017-12-14] MEDS: INSULIN LISPRO 100 UNIT/ML SC SCH ×3 (08:33→19:23)
[2017-12-14] MEDS: METOPROLOL TARTRATE 25 MG TAB PO SCH ×2 (08:36→21:05)
[2017-12-14] MEDS: DESOXIMETASONE 0.05% TP SCH (08:40)
[2017-12-14] MEDS ORDERED: GLIMEPIRIDE 1 MG TAB PO SCH (09:00)
[2017-12-14] MEDS ORDERED: PATCH REMOVAL 1 EA PATCH TD ONE (14:10)
[2017-12-14] MEDS ORDERED: SCOPOLAMINE HYDROBROMIDE 1 MG/3 DAYS PATCH TD ONE (14:30)
--- NOTE | 2017-12-14 17:09 | ASMTCMCOM ---
CM Note CM Note Notes: Met with patient and to review dc plan of care. They verbalize understanding that she may need SNF or if she continues to improve then likely home. They express a desire to have HHC as the patient also has a sister at home who is disabled. Referral to [facility] and per their choice [facility] in [facility] having stated [facility] would [facility] their [facility] choice. CM to [facility] for progress and final discharge needs. Plan: TBD Date Signed: 12/14/2017 05:08 PM Electronically Signed By:Melissa Adams RN
[2017-12-14] MEDS: ATORVASTATIN CALCIUM 40 MG TAB PO SCH (20:15)
[2017-12-14] MEDS: traMADol 50 MG TAB PO PRN (23:45)
[2017-12-15] MEDS: HYDROCODONE/APAP 10/325 TAB PO PRN (03:15)
[2017-12-15] MEDS: HEPARIN 5,000 UNIT/0.5 ML INJ SC SCH ×3 (06:05→21:36)
[2017-12-15] MEDS: INSULIN LISPRO 100 UNIT/ML SC SCH ×3 (07:43→17:57)
--- NOTE | 2017-12-15 08:13 | SOAPPROG ---
SOAP Progress Note Assessment/Plan: Assessment: POD#4 CABG x 5 (ENGLAND-LAD, SV-D2, SV-OM1, SV seq PLR-PDA), EVH bilat LEs, prophylactic suture ligation left atrial appendage Sx CAD with preserved LV systolic fx - s/p CABG. Extubated in the OR. Stable early postop course. Wires and tubes out. Adequate autodiuresis of modest volume overload. Secondary prevention with ASA, statin, and BB as tolerated. Acute expected blood loss anemia - Well tolerated. Counts likely dilutional. Transfuse only for sx. DM2, controlled - Preop A1c of 5.6%. Postop hyperglycemia managed with insulin gtt. Prompt transition to SSI. Gradual reintro of OHA as oral intake improves. Plan: Cj CBC. Decrease Amaryl back to 25% home dose. Cont metoprolol 12.5 mg BID. Stop scopolamine patch. Cont inc activity as tolerated. Wean O2. Dispo - Anticipate home without services tomorrow. 12/15/17 08:08 Subjective: Feels great. Improving appetite. Min incisional discomfort. Tolerating light activity without dizziness or breathlessness. Wants to go home tomorrow. Objective: Vital Signs Temp Pulse Resp BP Pulse Ox 36.9 C 96 16 126/78 H 97 12/15/17 04:00 12/15/17 04:00 12/15/17 04:00 12/15/17 04:00 12/15/17 04:00 Laboratory Results 12/15/17 03:15 12/15/17 03:15 12/14/17 12/15/17 12/16/17 05:59 05:59 05:59 Intake Total 850 320 Output Total 1015 2225 200 Balance -165 -1905 -200 Holding SR. No hypotension. Borderline suppl O2 req. Improving fluid balance. Last 2 FSGB < 80 mg/dl. Physical Exam - Physical Exam General Appearance: alert, no apparent distress Respiratory: lungs clear (grossly) Cardiac/Chest: regular rate, rhythm, other (Sternotomy and bilat LE venots CDI) Abdomen: non-tender, soft Skin: warm/dry Extremities: swelling (trace) ICD10 Worksheet Patient Problems: Problems Problem Status Onset S/P coronary artery bypass graft x 5 Acute chronic disease mgmt/transitional care Acute Coronary artery disease Acute Hypertension Acute Renal artery stenosis Acute
[2017-12-15] MEDS ORDERED: POTASSIUM CL 10 MEQ TAB PO ONE (08:16)
[2017-12-15] MEDS ORDERED: FUROSEMIDE 20 MG TAB PO ONE (09:00)
[2017-12-15] MEDS: SENNOSIDES/DOCUSATE SODIUM TAB PO SCH (09:31)
[2017-12-15] MEDS: MONTELUKAST SODIUM 10 MG TAB PO SCH (09:32)
[2017-12-15] MEDS: ASPIRIN EC 325 MG TAB PO SCH (09:32)
[2017-12-15] MEDS: GLIMEPIRIDE 1 MG TAB PO SCH (09:32)
[2017-12-15] MEDS: PANTOPRAZOLE SODIUM 40 MG TAB PO SCH (09:33)
[2017-12-15] MEDS: HYDROCODONE/APAP 5/325 TAB PO PRN ×3 (09:33→21:36)
[2017-12-15] MEDS: METOPROLOL TARTRATE 25 MG TAB PO SCH ×2 (09:33→21:37)
[2017-12-15] MEDS ORDERED: PATCH REMOVAL 1 EA PATCH TD ONE (11:56)
--- NOTE | 2017-12-15 12:40 | ASMTCMCOM ---
CM Note CM Note Notes: Reviewed chart and discussed w/RN. Pt doing better today. Per progress and RN, note pt will likely dc home without services and follow up w/ outpt cardiac rehab. CM will follow. Date Signed: 12/15/2017 12:40 PM Electronically Signed By:Suri Fishman RN
[2017-12-15] MEDS ORDERED: SENNOSIDES/DOCUSATE SODIUM TAB PO PRN (21:00)
[2017-12-15] MEDS: ATORVASTATIN CALCIUM 40 MG TAB PO SCH (21:37)
[2017-12-16] MEDS: HYDROCODONE/APAP 5/325 TAB PO PRN ×2 (02:54→07:56)
[2017-12-16] MEDS: HEPARIN 5,000 UNIT/0.5 ML INJ SC SCH (04:59)
--- NOTE | 2017-12-16 07:25 | SOAPPROG ---
SOAP Progress Note Assessment/Plan: Assessment: POD#5 CABG x 5 (ENGLAND-LAD, SV-D2, SV-OM1, SV seq PLR-PDA), EVH bilat LEs, prophylactic suture ligation left atrial appendage Sx CAD with preserved LV systolic fx - s/p CABG. Extubated in the OR. Stable early postop course. Wires and tubes out. Adequate autodiuresis of modest volume overload. Secondary prevention with ASA, statin, and BB as tolerated. Acute expected blood loss anemia - Well tolerated. Counts likely dilutional. Transfuse only for sx. DM2, controlled - Preop A1c of 5.6%. Postop hyperglycemia managed with insulin gtt. Prompt transition to SSI. Gradual reintro of OHA as oral intake improves. Plan: Ok for discharge. Instructions re diet, meds, activity, wound care and f/u to be reviewed in presence of . 12/16/17 07:24 Subjective: Cont to feel well. Appetite almost back to normal. Moving around independently. Comfortable going home. Objective: Vital Signs Temp Pulse Resp BP Pulse Ox 37.1 C 78 14 109/69 89 L 12/15/17 23:15 12/16/17 04:00 12/15/17 23:15 12/15/17 23:15 12/16/17 04:00 Laboratory Results 12/16/17 04:40 12/15/17 03:15 12/15/17 12/16/17 12/17/17 05:59 05:59 05:59 Intake Total 320 2000 Output Total 2225 2175 Balance -1905 -175 Cardioresp status stable. Off O2. Improving fluid balance. H/H appears to have plateaued. Last FSBG x 3 > 80 mg/dl Physical Exam - Physical Exam General Appearance: alert, no apparent distress Respiratory: lungs clear (grossly) Cardiac/Chest: regular rate, rhythm, other (Sternotomy, CT sites, and bilat venotomies healing well.) Abdomen: non-tender, soft Skin: warm/dry Extremities: swelling (trace dependent) ICD10 Worksheet Patient Problems: Problems Problem Status Onset S/P coronary artery bypass graft x 5 Acute chronic disease mgmt/transitional care Acute Coronary artery disease Acute Hypertension Acute Renal artery stenosis Acute
[2017-12-16 07:31] VITALS: BP 131/65
[2017-12-16] MEDS: ASPIRIN EC 325 MG TAB PO SCH (07:56)
[2017-12-16] MEDS: PANTOPRAZOLE SODIUM 40 MG TAB PO SCH (07:56)
[2017-12-16] MEDS: METOPROLOL TARTRATE 25 MG TAB PO SCH (07:56)
[2017-12-16] MEDS: MONTELUKAST SODIUM 10 MG TAB PO SCH (07:56)
[2017-12-16] MEDS: INSULIN LISPRO 100 UNIT/ML SC SCH (07:57)
[2017-12-16] MEDS: GLIMEPIRIDE 1 MG TAB PO SCH (07:57)
--- NOTE | 2017-12-16 08:04 | PDDCSUM ---
Discharge Summary Discharge Summary: DATE OF ADMISSION: 12/11/17 DATE OF DISCHARGE: 12/16/17 DISPOSITION: Home, self-care PRINCIPAL ADMISSION DIAGNOSIS: Severe multivessel coronary artery disease PRINCIPAL DISCHARGE DIAGNOSES: 1. Status post coronary artery bypass grafting x 5 2. Status post prophylactic suture ligation of the left atrial appendage 3. Acute expected blood loss anemia HISTORY OF PRESENT ILLNESS: 72 yo with exertional chest pains and dyspnea found to have severe 2 vessel CAD with preserved LV systolic function. Admitted for elective surgical revascularization. PERTINENT PAST MEDICAL HISTORY: HTN, dyslipidemia, NIDDM, PAD MEDICATIONS ON ADMISSION: ASA 325 mg daily, Montelukast 10 mg daily, Losartan/HCTZ 50/12.5 one tab BID, Toprol XL 50 mg daily, Lipitor 40 mg HS, Amaryl 4 mg daily, Nitrostat 0.4 mg SL q5min prn ALLERGIES/SENSITIVITIES: Cephalexin causing a rash, codeine causing profound nausea and vomiting, chloroprep causing an itchy rash CONSULTANTS: none PROCEDURES/IMAGIN12/11/17 (Vicki): Coronary artery bypass grafting x 5 (ENGLAND-LAD, SV-D2, SV-OM1, SV sequentially to PLR and PDA). Takedown left internal mammary artery. Endoscopic vein harvest left leg and right thigh. Prophylactic suture ligation left atrial appendage. ABBREVIATED HOSPITAL COURSE BY ACTIVE PROBLEM LIST: 1. Sx CAD with preserved LV systolic fx - s/p CABG. Extubated in the OR. Stable early postop course. Adequate diuresis of modest volume overload. Secondary prevention with ASA, statin, and BB as tolerated. 2. Acute expected blood loss anemia - Well tolerated. Marginal counts partly dilutional. Follow as outpatient. 3. DM2, controlled - Preop A1c of 5.6%. Postop hyperglycemia managed with insulin gtt. Prompt transition to SSI. Plan gradual reintro of OHA as oral intake improves. DISCHARGE CLINICAL INFORMATION: Sternum grossly stable. Sternotomy and bilat venotomies CDI, sutured, + Dermabond. HR 70s-80s. SBP 110s. SpO2 89% RA sleeping, > 92% RA awake. Wt 5 kg above admission at 58.9 kilos. WBC 6.4, Hgb 7.6, HCT 22.8, Plt 201, Na 140, K 4.2, Cr 0.7 DISCHARGE MEDICATIONS: As on admission with the following adjustments: 1. Hold Losartan/HCTZ 2. Hold Toprol XL 3. Decrease Amaryl to 1 mg daily. Uptitrate to home dose as directed NEW prescriptions: 1. Metoprolol tartrate 12.5 mg BID 2. Tramadol 25-50 mg q6h prn incisional pain 3. HCTZ 12.5 mg daily until back to baseline weight and no swelling. FOLLOW UP APPOINTMENTS: 1. CV surgery: with Dr Cohen at [facility] on 12/23 at 9:30 am . 2. Cardiology: with Dr Reddy at [facility] within 4-6 weeks. Appointment to be established during surgical visit. FOLLOW UP TESTING: CBC and CXR prior to surgical appointment.
[2017-12-16] MEDS ORDERED: HYDROCHLOROTHIAZIDE 25 MG TAB PO SCH (09:00)
[2017-12-16] MEDS ORDERED: HYDROCHLOROTHIAZIDE 12.5 MG CAP PO SCH (09:00)
--- NOTE | 2017-12-16 11:01 | ASMTLACE ---
LACE Length of stay for Answers: 4-6 days current admission Acuity / Level of Answers: Yes Care: Did the patient have an inpatient admission? Comorbidities - select Answers: Coronary Artery Disease all that apply Other Notes: Coronary bypass graft x 5 # of Emergency department Answers: 0 visits in the last 6 months Score: 10 Date Signed: 12/16/2017 11:00 AM Electronically Signed By:Nithya Mckee RN
--- NOTE | 2017-12-16 11:04 | ASDISCHSUM ---
Discharge Information Plan Status:Home with No Needs Medically Cleared to Leave:12/16/2017 Discharge Date:12/16/2017 CM D/C Disposition:Home, Routine, Self-Care ADT D/C Disposition:Home, Routine, Self-Care Projected Discharge Date:12/16/2017 11:00 AM Transportation at D/C:Family Discharge Delay Reason: Follow-Up Date:12/16/2017 11:00 AM Discharge Slot: Final Diagnosis: Placement Information Referral Type:*Home Health Care Services Referral ID:[id number] Provider Name: Address 1: Phone Number: Address 2: Fax Number: City: Selection Factors: State: Referral Type:*Halfway/SNF Referral ID:[id number] Provider Name: Address 1: Phone Number: Address 2: Fax Number: City: Selection Factors: State: Patient Contact Information Contact Name:[place] Relationship: Address:[address] Work Phone: City:[place] Alternate Phone: State/Zip Code:[place] [address] Email: Financial Information Financial Class:Medicare Primary Plan Desc:MEDICARE INPATIENT Primary Plan Number:[id number] Secondary Plan Desc:[facility] Secondary Plan Number:[id number] Assessment Information LACE LACE Length of stay for Answers: 4-6 days current admission Acuity / Level of Answers: Yes Care: Did the patient have an inpatient admission? Comorbidities - select Answers: Coronary Artery Disease all that apply Other Notes: Coronary bypass graft x 5 # of Emergency department Answers: 0 visits in the last 6 months Score: 10 Date Signed: 12/16/2017 11:00 AM Electronically Signed By:Nithya Mckee RN [facility] Initial CM Assessment Living Arrangements What is your living Answers: With Spouse arrangement? Who do you live with? Type Of Residence What kind of residence do Answers: Apartment you live in? Discharge Plan Comments Coordination Status Comments Notes: Patient is a 72yo female who was admitted for coronary artery bypass grafting x5 with Dr. Cohen. OT/PT/Cardiac rehab evals ordered. D/C plan TBD. CM will follow. Date Signed: 12/11/2017 11:52 AM Electronically Signed By:Celestina Zambrano LCSW [facility] CM Progress Note CM Note CM Note Notes: Pt is POD#2, s/p CABG. Anticipate pt will dc home w/ and follow up w/outpt cardiac rehab. CM will follow. Date Signed: 12/13/2017 06:35 PM Electronically Signed By:Suri Fishman RN [facility] CM Progress Note CM Note CM Note Notes: Met with patient and to review dc plan of care. They verbalize understanding that she may need SNF or if she continues to improve then likely home. They express a desire to have [facility] as the patient also has a sister at home who is disabled. Referral to [facility] and per their choice [facility] in [facility] having stated [facility] their [facility] choice. CM to [facility] for progress and final discharge needs. Plan: TBD Date Signed: 12/14/2017 05:08 PM Electronically Signed By:Melissa Adams RN [facility] CM Progress Note CM Note CM Note Notes: Reviewed chart and discussed w/RN. Pt doing better today. Per progress and RN, note pt will likely dc home without services and follow up w/ outpt cardiac rehab. CM will follow. Date Signed: 12/15/2017 12:40 PM Electronically Signed By:Suri Fishman RN Case Management Discharge Plan Note Case Management Discharge Discharge Order Complete? Answers: Yes Patient to Obtain Answers: via Family Medications Discharge Comments Notes: 12/16/2017 Case Management Note Pt to d/c home with family support and participate in cardiac outpatient rehab. Date Signed: 12/16/2017 11:03 AM Electronically Signed By:Nithya Mckee RN Intervention Information Intervention Type:*IM-Signed Date of Service:12/16/2017 10:48 AM Patient Type:Inpatient Staff Member:Carline Angela Hours: Discipline: Severity: Comment:
== END 2017-12-16 11:39 | disposition home or self-care (01) | DRG 236 ==
LOC: F2N 05:41 → F2W 12-12 11:35
PROVIDERS: ADMIT Thoracic Surgery (Cardiothoracic Vascular Surgery); ATTEND Thoracic Surgery (Cardiothoracic Vascular Surgery)
PROC: 06BP4ZZ Excision of Right Saphenous Vein, Percutaneous Endoscopic Approach (ICD-10-PCS; principal; 2017-12-11 07:15)
PROC: 06BQ4ZZ Excision of Left Saphenous Vein, Percutaneous Endoscopic Approach (ICD-10-PCS; principal; 2017-12-11 07:15)
PROC: 021309W Bypass Coronary Artery, Four or More Arteries from Aorta with Autologous Venous Tissue, Open Approach (ICD-10-PCS; principal; 2017-12-11 07:15)
PROC: 02100Z9 Bypass Coronary Artery, One Artery from Left Internal Mammary, Open Approach (ICD-10-PCS; principal; 2017-12-11 07:15)
PROC: 5A1221Z Performance of Cardiac Output, Continuous (ICD-10-PCS; principal; 2017-12-11 07:15)
DX: I25.10 Atherosclerotic heart disease of native coronary artery without angina pectoris (principal); E11.51 Type 2 diabetes mellitus with diabetic peripheral angiopathy without gangrene; E78.5 Hyperlipidemia, unspecified; I10 Essential (primary) hypertension
CPT/HCPCS: 82947-QW; 97116-GP; 97161-GP; 97165-GO; 97530-GO; 97530-GP; 97535-GO; G8978-GP-CJ; G8979-GP-CI; G8987-GO-CJ; J0153; J0282; J0690; J1100; J1265; J1644; J1815; J1885; J2001; J2150; J2250; J2260; J2370; J2405; J2440; J2704; J2720; J2765; J2930; J3010; J3370; J3475; J3480; J7060; P9041

== ENCOUNTER 2017-12-18 11:02 | Emergency (ER) | payer OTHER ==
--- NOTE | 2017-12-18 11:14 | CPEKG ---
Heart Rate: 68 RR Interval: 882 P-R Interval: 148 QRSD Interval: 86 QT Interval: 416 QTC Interval: 443 P [place]: 42 QRS [place]: 52 T Wave [place]: 140 EKG Severity - ABNORMAL ECG - EKG Impression: SINUS RHYTHM EKG Impression: NONSPECIFIC T ABNORMALITIES, ANT-LAT LEADS Electronically Signed By: Jennifer Corrigan 18-Dec-2017 13:36:36
[2017-12-18 11:24] LABS: PLATELET COUNT 381 10^3/uL (150-400)
--- NOTE | 2017-12-18 11:47 | CPEKG ---
Heart Rate: 138 RR Interval: 435 QRSD Interval: 90 QT Interval: 304 QTC Interval: 461 QRS [place]: 51 T Wave [place]: 190 EKG Severity - ABNORMAL ECG - EKG Impression: ATRIAL FIBRILLATION EKG Impression: BORDERLINE R WAVE PROGRESSION, ANTERIOR LEADS EKG Impression: NONSPECIFIC REPOL ABNORMALITY, DIFFUSE LEADS Electronically Signed By: Jennifer Corrigan 18-Dec-2017 13:36:28
--- NOTE | 2017-12-18 11:58 | EDPHY ---
H & P Stated Complaint: cabg 12/11 at cardiac rehab developed cp Time Seen by Provider: 12/18/17 11:15 HPI/ROS: CHIEF COMPLAINT: Rapid heart rate, nausea HISTORY OF PRESENT ILLNESS: 72-year-old female 1 week status post CABG presents with rapid heart rate and nausea. She went to cardiac rehab today and while registering, she developed nausea and rapid heart rate, associated with dizziness and pain in her back and left arm. The rapid heart rate has been intermittent, but makes her feel quite anxious. She is taking tramadol and Tylenol for postoperative pain. No change in postop chest pain. No dizziness, fever, SOB. No prior history of atrial fibrillation. REVIEW OF SYSTEMS: complete 10 point ROS negative except at noted in the HPI - Personal History Current Tetanus Diphtheria and Acellular Pertussis (TDAP): Yes - Medical/Surgical History Hx Asthma: No Hx Chronic Respiratory Disease: No Hx Diabetes: No Hx Cardiac Disease: Yes Hx Renal Disease: No Hx Cirrhosis: No Hx Alcoholism: No Hx HIV/AIDS: No Hx Splenectomy or Spleen Trauma: No Other PMH: hypertension, allergies cabg - Social History Smoking Status: Never smoked Alcohol Use: Sober Additional Social History: - Physical Exam Exam: General Appearance: Alert, pleasant Eyes: Pupils equal and round, no conjunctival pallor or injection ENT, Mouth: Mucous membranes moist Neck: Normal inspection Respiratory: Lungs are clear to auscultation anteriorly, surgical incision is clean dry and intact Cardiovascular: Irregularly irregular tachycardia Gastrointestinal: Abdomen is soft and nontender Neurological: A&O, nonfocal exam Skin: Warm and dry, no rash Extremities: Nontender, no pedal edema Psychiatric: Anxious Constitutional: Initial Vital Signs Temperature (C) 36.4 C 12/18/17 11:03 Heart Rate 61 12/18/17 11:03 Respiratory Rate 18 12/18/17 11:03 Blood Pressure 154/84 H 12/18/17 11:03 O2 Sat (%) 99 12/18/17 11:03 O2 Delivery Mode Room Air Allergies/Adverse Reactions: cephalexin Allergy (Intermediate, Verified 12/18/17 11:03) Rash codeine Allergy (Intermediate, Verified 12/18/17 11:03) Other-Enter Comments chloroprep Allergy (Uncoded 12/02/17 15:54) Rash Home Medications: Medication Instructions Recorded Montelukast Sodium 10 mg PO DAILY 02/19/15 Aspirin EC [Aspirin EC 325 mg (*)] 325 mg PO DAILY 11/28/17 Nitroglycerin [Nitrostat 0.4 mg 0.4 mg SL PRN PRN #1 btl 11/28/17 (*)] Atorvastatin Calcium [Lipitor 40 40 mg PO HS 12/04/17 mg (*)] diphenhydrAMINE [Benadryl 25 MG 50 mg PO Q6HRS PRN 12/04/17 (*)] Acetaminophen [Tylenol 325mg (*)] 325 - 650 mg PO Q4HRS PRN tab 12/16/17 Glimepiride [Amaryl 1 MG (*)] 1 mg PO DAILY #30 tab 12/16/17 Hydrochlorothiazide [HCTZ (*)] 12.5 mg PO DAILY #15 tab 12/16/17 Metoprolol Tartrate [Lopressor 25 12.5 mg PO BID #60 tab 12/16/17 mg (*)] traMADol [Ultram 50 mg (*)] 50 mg PO Q6-8PRN PRN #20 tab 12/16/17 Apixaban [Eliquis 30-day Starter 1 kit PO AD #1 kit 12/18/17 Pack] Medical Decision Making - Diagnostics EKG Interpretation: EKG interpreted by me reveals normal sinus rhythm, rate 68, diffuse T-wave changes. Interpretation: abnormal EKG Repeat EKG: Afib with RVR. Interpretation: abnormal EKG Imaging Results: CXR: bilateral small pleural effusions Imaging: I viewed and interpreted images myself ED Course/Re-evaluation: This patient presents with paroxysmal atrial fibrillation with RVR. Initially in NSR at triage. In Afib with RVR during my eval, appears uncomfortable. Blood pressure was 130/100 during episode of AFib. She is on metoprolol 12.5 mg twice daily. Consulted Dr. Herron, suggests metoprolol 12.5mg now and consider increasing Metoprolol to 25mg bid; start Eliquis. Consulted Dr. Cohen- -Dr. Cohen to see pt in ED and requests adding Eliquis to med regimen. Seen by Dr. Cohen, ok to d/c home, f/u office. After metoprolol given in ED, no further episdoes of Afib. Risks/benefits of Eliquis d/w pt and her , understand and concur with starting Eliquis. Asymptomatic on d/c. Differential Diagnosis: Differential diagnosis includes though it is not limited to pneumonia, pneumothorax, pulmonary embolism, aortic dissection, pericarditis, acute coronary syndrome. - Data Points Laboratory Results: Laboratory Results 12/18/17 11:14 12/18/17 11:14 Medications Given: Discontinued Medications Acetaminophen (Tylenol) 650 mg PO EDNOW ONE Stop: 12/18/17 12:10 Last Admin: 12/18/17 12:24 Dose: 650 mg Metoprolol Tartrate (Lopressor) 12.5 mg PO EDNOW ONE Stop: 12/18/17 12:08 Last Admin: 12/18/17 12:25 Dose: 12.5 mg Point of Care Test Results: Chemistry 12/18/17 11:21 POC Sodium 138 mEq/L mEq/L (135-145) POC Potassium 3.8 mEq/L mEq/L (3.3-5.0) POC Chloride 100 mEq/L mEq/L (97-110) POC BUN 10 mg/dL mg/dL (7-23) POC Creatinine 0.7 mg/dL mg/dL (0.6-1.0) POC Glucose 122 mg/dL H mg/dL (70-100) ISTAT H&H 12/18/17 11:21 POC Hgb 10.9 gm/dL L gm/dL (12.6-16.3) POC Hct 32 % L % (38-47) Departure - Departure Disposition: Home, Routine, Self-Care Clinical Impression: Paroxysmal atrial fibrillation with RVR Condition: Good Instructions: A-fib (Atrial Fibrillation) (ED) Additional Instructions: Increase metoprolol to 25 mg twice daily. Start taking Eliquis as prescribed. Return with any concerns. Referrals: Dawood Ziegler MD [Primary Care Provider] - As per Instructions Ashleigh Herron MD [Medical Doctor] - 2-3 days, call for appt. Prescriptions: Apixaban [Eliquis 30-day Starter Pack] 1 kit PO AD #1 kit
[2017-12-18] MEDS ORDERED: METOPROLOL TARTRATE 25 MG TAB PO ONE (12:07)
[2017-12-18] MEDS ORDERED: ACETAMINOPHEN 325 MG TAB PO ONE (12:09)
[2017-12-18 15:06] VITALS: BP 136/72
== END 2017-12-18 15:07 | disposition home or self-care (01) ==
DX: I48.0 Paroxysmal atrial fibrillation (principal); I10 Essential (primary) hypertension; Z79.01 Long term (current) use of anticoagulants; Z79.82 Long term (current) use of aspirin
CPT/HCPCS: 82947-QW

== ENCOUNTER → 2017-12-23 | Outpatient (CLI) | payer OTHER | LOC: FIMAGING 09:22 | PROVIDERS: ATTEND Thoracic Surgery (Cardiothoracic Vascular Surgery) | DX: Z09 Encounter for follow-up examination after completed treatment for conditions other than malignant neoplasm (principal); Z95.1 Presence of aortocoronary bypass graft ==

== ENCOUNTER → 2018-04-14 | Outpatient (CLI) | payer OTHER | LOC: BHFA 11:00 | PROVIDERS: ATTEND Internal Medicine Cardiovascular Disease | DX: I25.812 Atherosclerosis of bypass graft of coronary artery of transplanted heart without angina pectoris (principal) ==

== ENCOUNTER → 2018-12-17 | Outpatient (CLI) | payer OTHER | LOC: BHFA 10:00 | PROVIDERS: ATTEND Internal Medicine Cardiovascular Disease | DX: I25.719 Atherosclerosis of autologous vein coronary artery bypass graft(s) with unspecified angina pectoris (principal); I11.9 Hypertensive heart disease without heart failure; I43 Cardiomyopathy in diseases classified elsewhere; R00.2 Palpitations ==